=== PATIENT | female | born 1980 | race African-American/Black ===

== ENCOUNTER 2016-12-25 22:03 | Emergency (ER) | payer SELFPAY ==
[~2016-12-25] VITALS: Ht 167.6 cm; Wt 86.4 kg
[~2016-12-25 22:03] MED LIST: AMLO-512 PO; ATEN25 PO; ATEN50TA PO; ENAL20 PO; HYDR25TA PO; HYDR50 PO
[2016-12-25 22:05] VITALS: BP 176/106
== END 2016-12-26 00:27 | disposition left against medical advice (07) ==
LOC: EMS 22:04
DX: R07.9 Chest pain, unspecified (principal); Z53.21 Procedure and treatment not carried out due to patient leaving prior to being seen by health care provider

== ENCOUNTER 2017-04-18 02:46 | Emergency (ER) | payer MEDICAID ==
[~2017-04-18] VITALS: Ht 167.6 cm; Wt 77.3 kg
[~2017-04-18 02:46] MED LIST changes: -ATEN25 PO; +HYDR-2924 PO; -HYDR50 PO
[2017-04-18] MEDS ORDERED: ALPR0.5T8 PO (03:32)
[2017-04-18] MEDS ORDERED: ARIP5TAB9 PO (03:32)
[2017-04-18] MEDS ORDERED: HYDR25TA PO (03:32)
[2017-04-18] MEDS ORDERED: PROZ10 PO (03:32)
[2017-04-18 03:33] LABS: BASOPHILS % (AUTO) 0.6 % (0.0-2.0); EOSINOPHILS % (AUTO) 1.5 % (1.0-6.0); HEMATOCRIT 33.4 % (36-46); LYMPHOCYTES # (AUTO) 3.3 K/uL (1.0-4.8); LYMPHOCYTES % (AUTO) 45.5 % (22.0-44.0); MEAN CORPUSCULAR HEMOGLOBIN 28.1 pg (26.0-34.0); MEAN CORPUSCULAR VOLUME 85 fL (80-100); MONOCYTES # (AUTO) 0.6 K/uL (0.1-1.0); MONOCYTES % (AUTO) 8.7 % (2.0-9.0); NEUTROPHILS # (AUTO) 3.2 K/uL (1.8-7.7); NEUTROPHILS % (AUTO) 43.7 % (40.0-70.0); PLATELET COUNT (AUTO) 339 K/uL (150-450); RED BLOOD CELL COUNT(AUTO) 3.92 MIL/uL (4.00-5.20); RED CELL DISTRIBUTION WIDTH 18.2 % (11.5-14.5); WHITE BLOOD COUNT (AUTO) 7.2 K/uL (4.5-11.0)
[2017-04-18 03:41] LABS: ANION GAP 7 mmol/L (8-16); CALCIUM, TOTAL 8.6 mg/dL (8.8-10.5); CARBON DIOXIDE 27 mmol/L (22-29); CHLORIDE 105 mmol/L (98-107); CREATININE 0.84 mg/dL (0.60-1.30); GLOMERULAR FILTR. RATE CALC > 60 mL/min (>60); POTASSIUM 3.4 mmol/L (3.5-5.1); SODIUM SERUM 139 mmol/L (136-145); UREA NITROGEN, BLOOD 12 mg/dL (7-18)
[2017-04-18 03:47] LABS: ALANINE AMINOTRANSFERASE 23 U/L (12-78); ALBUMIN 3.6 g/dL (3.4-5.0); ASPARTATE AMINOTRANSFERASE 12 U/L (15-37); BILIRUBIN,TOTAL 0.3 mg/dL (0.1-1.0); TOTAL PROTEIN, SERUM 7.4 g/dL (6.4-8.2)
[2017-04-18 03:50] LABS: RBC MORPHOLOGY COMMENT ABNORMAL RBC MORPH
[2017-04-18] MEDS ORDERED: HydrALAZINE HCL 25 MG TABLET PO ONE (04:00)
[2017-04-18] MEDS ORDERED: ATENOLOL 50 MG TABLET PO ONE (04:00)
[2017-04-18 04:31] LABS: APPEARANCE,URINE CLEAR (CLEAR); GLUCOSE, URINE (UA) NEGATIVE (NEGATIVE); KETONES,URINE NEGATIVE (NEGATIVE); LEUKOCYTE ESTERASE ,URINE NEGATIVE (NEGATIVE); OCCULT BLOOD,URINE NEGATIVE (NEGATIVE); PROTEIN,URINE NEGATIVE (NEGATIVE)
[2017-04-18 04:50] LABS: SQUAMOUS EPITHELIAL CELL,UR Few /LPF (None Seen); WBC,URINE None Seen /HPF (0-5)
[2017-04-18 05:26] VITALS: BP 131/82
== END 2017-04-18 05:28 | disposition home or self-care (01) ==
LOC: EMS 02:47
DX: L03.115 Cellulitis of right lower limb (principal); R07.89 Other chest pain; I10 Essential (primary) hypertension; R19.00 Intra-abdominal and pelvic swelling, mass and lump, unspecified site; N63 Unspecified lump in breast; F17.210 Nicotine dependence, cigarettes, uncomplicated; F12.90 Cannabis use, unspecified, uncomplicated
CPT/HCPCS: 36415; 80053; 81001; 83690; 84484; 84703; 85025; 85379; 93005; 93971; 99285; 99406; G0480

== ENCOUNTER 2017-09-27 00:34 | Emergency (ER) | payer MEDICAID ==
[~2017-09-27] VITALS: Ht 167.6 cm; Wt 86.4 kg
[~2017-09-27 00:34] MED LIST changes: +ALPR0.5T8 PO; +ARIP5TAB8 PO; +PROZ10 PO
[2017-09-27] MEDS ORDERED: KETOROLAC TROMETHAMINE 60 MG/2 ML VIAL IM ONE (02:15)
[2017-09-27] MEDS ORDERED: CYCLOBENZAPRINE HCL 10 MG TABLET PO ONE (02:15)
[2017-09-27] MEDS ORDERED: ONDANSETRON HCL 4 MG/2 ML VIAL IM ONE (02:15)
[2017-09-27] MEDS ORDERED: MORPHINE SULFATE 4 MG/ML SYRINGE IM ONE (02:15)
[2017-09-27 04:59] VITALS: BP 137/76
== END 2017-09-27 05:13 | disposition home or self-care (01) ==
LOC: EMS 00:35
DX: M54.5 Low back pain (principal); M79.604 Pain in right leg; M79.605 Pain in left leg; F17.210 Nicotine dependence, cigarettes, uncomplicated; F12.90 Cannabis use, unspecified, uncomplicated
CPT/HCPCS: 96372; 99284; 99406; J1885; J2270; J2405